=== PATIENT | male | born 1965 | race Caucasian/White ===

== ENCOUNTER 2017-01-08 16:16 | Inpatient (IN) | payer OTHER ==
[2017-01-08 19:39] VITALS: BMI 29.2
--- NOTE | 2017-01-08 20:17 | HP ---
CIWA Score - CIWA Score Nausea/Vomitin-No Nausea/No Vomiting Muscle Tremors: 3 Anxiety: 2 Agitation: 3 Paroxysmal Sweats: 3 Orientation: 1-Uncertain about Date Tacttile Disturbances: 1-Very Mild Itch/Numbness Auditory Disturbances: 1-Very Mild Visual Disturbances: 1-Very Mild Sensitivity Headache: 2-Mild CIWA-Ar Total Score: 17 Admission ROS BHS - HPI Chief Complaint: WITHDRAWAL SYMPTOMS Allergies/Adverse Reactions: Allergies Allergy/AdvReac Type Severity Reaction Status Date / Time No Known Allergies Allergy Verified 09/05/11 22:11 History of Present Illness: 51 Y.O. MAN WITH AN EXTENSIVE HISTORY OF ALCOHOL DEPENDENCE IS HERE SEEKING DETOX. HE WAS PREVIOUSLY AT [facility] IN 09/2011 AND REPORTS HAVING A 2 YEAR HISTORY OF SOBRIETY. PT. REPORTS HE WAS ADMITTED AT [facility] THE WEEK PRIOR FOR ALCOHOL INTOXICATION. Exam Limitations: No Limitations - Ebola screening Have you traveled outside of the country in the last 21 days: No (N) Have you had contact with anyone from an Ebola affected area: No Have you been sick,other than usual withdrawal symptoms: No Do you have a fever: No - Review of Systems Constitutional: Loss of Appetite, Night Sweats, Unintentional Wgt. Loss EENT: reports: Blurred Vision Respiratory: reports: No Symptoms reported Cardiac: reports: No Symptoms Reported GI: reports: Poor Appetite : reports: Other (HESITANCY) Musculoskeletal: reports: Back Pain Integumentary: reports: Rash (ON CHEST) Neuro: reports: Headache (H/O TENSION JUNE), Seizure (ETOH RELATED-LAST WAS 1 WEEK AGO), Tremors Endocrine: reports: No Symptoms Reported Hematology: reports: No Symptoms Reported Psychiatric: reports: Depressed, other (H/O PANIC ATTACKS) Other Systems: Reviewed and Negative Patient History - Patient Medical History Hx Anemia: No Hx Asthma: No Hx Chronic Obstructive Pulmonary Disease (COPD): No Hx Cancer: No Hx Cardiac Disorders: No Hx Congestive Heart Failure: No Hx Hypertension: No Hx Hypercholesterolemia: No Hx Pacemaker: No HX Cerebrovascular Accident: No Hx Seizures: Yes (last seizure 1 week ago) Hx Dementia: No Hx Diabetes: No Hx Gastrointestinal Disorders: No Hx Liver Disease: No Hx Genitourinary Disorders: No Hx Sexually Transmitted Disorders: No Hx Renal Disease (ESRD): No Hx Thyroid Disease: No Hx Human Immunodeficiency Virus (HIV): No (Negative ) Hx Hepatitis C: No Hx Depression: Yes Hx Suicide Attempt: No Hx Bipolar Disorder: No Hx Schizophrenia: No - Patient Surgical History Past Surgical History: Yes Hx Neurologic Surgery: No Hx Cataract Extraction: No Hx Cardiac Surgery: No Hx Lung Surgery: No Hx Breast Surgery: No Hx Breast Biopsy: No Hx Abdominal Surgery: Yes (Hernia repair 2012) Hx Appendectomy: No Hx Cholecystectomy: No Hx Genitourinary Surgery: No Hx Section: No Hx Orthopedic Surgery: Yes (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) Other Surgical History: Amputation of Left Index finger Anesthesia Reaction: No - PPD History Previous Implant?: Yes Documented Results: Negative w/o proof PPD to be Administered?: Yes - Reproductive History Patient is a Female of Child Bearing Age (11 -55 yrs old): No - Smoking Cessation Smoking history: Former smoker Have you smoked in the past 12 months: No Hx Chewing Tobacco Use: No Initiated information on smoking cessation: Yes 'Breaking Loose' booklet given: 01/08/17 - Substance & Tx. History Hx Alcohol Use: Yes Hx Substance Use: No Substance Use Type: Alcohol Hx Substance Use Treatment: Yes (REHAB AND DETOX ) - Substances Abused Alcohol Route: Oral Frequency: Daily Amount used: 6 PACK OF BEER AND 2 PINTS OF LIQUOR Age of first use: 16 Date of Last Use: 01/08/17 Family Disease History - Family Disease History Family Disease History: Other: Father (ALCOHOL DEPENDENCE-) Admission Physical Exam BHS - Vital Signs Vital Signs: Vital Signs - 24 hr 01/08/17 19:35 Temperature 97.0 F L Pulse Rate 77 Respiratory 18 Rate Blood Pressure 143/86 - Physical General Appearance: Yes: Disheveled, Tremorous, Anxious HEENTM: Yes: Normocephalic, Normal Voice Respiratory: Yes: Lungs Clear, Normal Breath Sounds, No Respiratory Distress, No Accessory Muscle Use Neck: Yes: Within Normal Limits Breast: Yes: Breast Exam Deferred Cardiology: Yes: Regular Rhythm, Regular Rate, S1, S2 Abdominal: Yes: Non Tender, Flat, Soft Genitourinary: Yes: Hesitency Back: Yes: Normal Inspection Musculoskeletal: Yes: Back pain Extremities: Yes: Tremors Neurological: Yes: Alert, Normal Mood/Affect, Normal Response Integumentary: Yes: Normal Color, Dry, Warm Lymphatic: Yes: Within Normal Limits - Diagnostic (1) Alcohol dependence with uncomplicated withdrawal Current Visit: Yes Status: Chronic Cleared for Admission [facility] - Detox or Rehab [facility] Level of Care: Medically Managed Detox Regimen/Protocol: Librium [facility] Breath Alcohol Content Breath Alcohol Content: 0 Urine Drug Screen - Results Drug Screen Negative: No Urine Drug Screen Results: BZO-Benzodiazepines
[2017-01-08] MEDS ORDERED: LOPERAMIDE HCL 2 MG CAPSULE PO PRN (20:29)
[2017-01-08] MEDS ORDERED: MENTHOL/PHENOL 1 EACH UD MM PRN (20:29)
[2017-01-08] MEDS ORDERED: guaiFENesin/D-METHORPHAN HB 10 ML UNIT-DOSE CUPS PO PRN (20:29)
[2017-01-08] MEDS ORDERED: MAG HYDROX/AL HYDROX/SIMETH 30 ML UNIT-DOSE CUP PO PRN (20:29)
[2017-01-08] MEDS ORDERED: MAGNESIUM HYDROX 2400MG/30ML ORAL SUSPENSION 30 ML CUP PO PRN (20:29)
[2017-01-08] MEDS ORDERED: chlordiazePOXIDE HCL 25 MG CAPSULE PO PRN (20:29)
[2017-01-08] MEDS ORDERED: P-EPHED 60MG/TRIPROLIDI 2.5MG TABLET PO PRN (20:29)
[2017-01-08] MEDS ORDERED: MAGNESIUM CITRATE 300 ML BOTTLE PO PRN (20:29)
[2017-01-08] MEDS ORDERED: chlordiazePOXIDE HCL 25 MG CAPSULE PO ONE (20:29)
[2017-01-08] MEDS: diphenhydrAMINE HCL 50 MG CAPSULE PO PRN (22:51)
[2017-01-08] MEDS: chlordiazePOXIDE HCL 25 MG CAPSULE PO SCH (22:51)
[2017-01-08] MEDS: THIAMINE HCL 100 MG TABLET (FP) PO SCH (22:57)
[2017-01-09] MEDS: chlordiazePOXIDE HCL 25 MG CAPSULE PO SCH ×4 (05:31→22:17)
[2017-01-09] MEDS: IBUPROFEN 400 MG TABLET (FP) PO PRN ×2 (06:05→12:32)
[2017-01-09 10:10] LABS: MCHC 33.5 g/dl (32.0-35.9); MEAN CELL VOLUME 98.5 fl (80-96); MEAN PLT VOLUME 7.8 fl (7.5-11.1); PLATELET COUNT 282 K/MM3 (134-434); RDW 14.1 % (11.9-15.9); WHITE BLOOD COUNT 5.2 K/mm3 (4.0-10.0)
[2017-01-09] MEDS: PARoxetine HCL 10 MG TABLET (FP) PO SCH (10:11)
[2017-01-09] MEDS: PRENATAL VITAMINS W/ FOLIC ACID TABLET (FP) PO SCH (10:11)
[2017-01-09] MEDS: ACETAMINOPHEN 325 MG TABLET (FP) PO PRN ×2 (10:11→13:14)
[2017-01-09 10:15] LABS: ALBUMIN 3.3 g/dl (3.4-5.0); ANION GAP 9 (8-16); BILIRUBIN,TOTAL 0.5 mg/dL (0.2-1.0); CALCIUM 8.8 mg/dL (8.5-10.1); CO2 27 mmol/L (21-32); COCKROFT - GAULT 164.46; CREATININE 0.6 mg/dL (0.7-1.3); GLUCOSE,RANDOM 99 mg/dL (74-106); SGOT/AST 23 U/L (15-37); SGPT/ALT 28 U/L (12-78); TOT PROT 6.8 g/dl (6.4-8.2)
[2017-01-09 10:16] LABS: ALK PHOS 20 U/L (45-117)
--- NOTE | 2017-01-09 10:42 | CONSULT ---
[facility] Psychiatric Consult - Data Date of interview: 01/09/17 Admission source: [facility] Identifying data: This is 51 years old homeless male with history of no psychiatric hospitalizations, intoxicated with Alcohol and Benzodiazepins Substance Abuse History: - Smoking Cessation. Smoking history: Former smoker. Have you smoked in the past 12 months: No. Hx Chewing Tobacco Use: No. Initiated information on smoking cessation: Yes. 'Breaking Loose' booklet given : 01/08/17. - Substance & Tx. History. Hx Alcohol Use: Yes. Hx Substance Use : No. Substance Use Type: Alcohol. Hx Substance Use Treatment: Yes (REHAB AND DETOX ). - Substances Abused. Alcohol. Route: Oral. Frequency: Daily. Amount used: 6 PACK OF BEER AND 2 PINTS OF LIQUOR. Age of first use: 16. Date of Last Use: 01/08/17 Medical History: Denies significant medical issues Psychiatric History: Reports history of depression and anxiety, reports no psychiatriocf hospitalization history, reports taking prior toa dmission: Paxil 30mg poqd Physical/Sexual Abuse/Trauma History: Denies Additional Comment: Paxil 30mg poqd Mental Status Exam - Mental Status Exam Alert and Oriented to: Person Cognitive Function: Fair Patient Appearance: Unkempt Mood: Sad Affect: Flat Patient Behavior: Sedated Speech Pattern: Delayed Voice Loudness: Mildly Soft/Quiet Thought Process: Circumstantial Thought Disorder: Being Controlled Hallucinations: Denies Suicidal Ideation: Denies Homicidal Ideation: Denies Insight/Judgement: Fair Sleep: Difficulty falling asleep Appetite: Fair Muscle strength/Tone: Mild Hypotonicity Gait/Station: Shuffling Additional Comments: Paxil 30mg poqd Psychiatric Findings - Problem List ([place] 1, 2,3) (1) Alcohol dependence with uncomplicated withdrawal Current Visit: Yes Status: Chronic (2) Benzodiazepine abuse Current Visit: Yes Status: Acute (3) Drug-induced mood disorder Current Visit: Yes Status: Acute - Initial Treatment Plan Initial Treatment Plan: Paxil 30mg poqd
--- NOTE | 2017-01-09 10:51 | PN ---
[facility] CIWA - CIWA Score Nausea/Vomitin Muscle Tremors: 3 Anxiety: 3 Agitation: 3 Paroxysmal Sweats: 3 Orientation: 0-Oriented Tacttile Disturbances: 2-Mild Itch/Numbness/Burn Auditory Disturbances: 0-None Visual Disturbances: 0-None Headache: 0-None Present CIWA-Ar Total Score: 17 S Progress Note (SOAP) Subjective: interrupted sleep, sweats, shakes, feet hurt Objective: 01/09/17 10:49 Vital Signs Temperature 98.3 F 01/09/17 10:32 Pulse Rate 82 01/09/17 10:32 Respiratory Rate 16 01/09/17 10:32 Blood Pressure 148/93 01/09/17 10:32 O2 Sat by Pulse Oximetry (%) Laboratory Tests 01/09/17 01/09/17 07:00 07:00 WBC 5.2 RBC 3.96 L Hgb 13.1 Hct 39.0 MCV 98.5 H MCHC 33.5 RDW 14.1 Plt Count 282 MPV 7.8 Sodium 143 Potassium 4.0 Chloride 107 Carbon Dioxide 27 Anion Gap 9 BUN 10 D Creatinine 0.6 L Creat Clearance w eGFR > 60 Random Glucose 99 Calcium 8.8 Total Bilirubin 0.5 D AST 23 D ALT 28 Alkaline Phosphatase 20 L Total Protein 6.8 Albumin 3.3 L pt aox3 in nad ambulating with painfull feet Assessment: 01/09/17 10:51 withdrawal sx's Plan: cont. detox increase fluids motrin prn gabapentin 100mg tid
--- NOTE | 2017-01-09 12:39 | EKG ---
Test Reason : Blood Pressure : / mmHG Vent. Rate : 072 BPM Atrial Rate : 072 BPM P-R Int : 208 ms QRS Dur : 108 ms QT Int : 398 ms P-R-T Axes : 053 025 034 degrees QTc Int : 435 ms NORMAL SINUS RHYTHM NORMAL ECG NO PREVIOUS ECGS AVAILABLE Confirmed by BLAS RÍOS, LOIDA ([id number]) on 01/09/2017 12:39:27 PM Referred By: Confirmed By:LOIDA ODONNELL MD
[2017-01-09] MEDS: GABAPENTIN 100 MG CAPSULE (FP) PO SCH ×2 (13:13→22:17)
[2017-01-09] MEDS: THIAMINE HCL 100 MG TABLET (FP) PO SCH (22:17)
[2017-01-10] MEDS: GABAPENTIN 100 MG CAPSULE (FP) PO SCH ×3 (06:08→22:44)
[2017-01-10] MEDS: chlordiazePOXIDE HCL 25 MG CAPSULE PO SCH ×3 (06:08→17:43)
[2017-01-10] MEDS: IBUPROFEN 400 MG TABLET (FP) PO PRN (06:10)
[2017-01-10] MEDS: ACETAMINOPHEN 325 MG TABLET (FP) PO PRN (08:55)
[2017-01-10] MEDS: hydrOXYzine PAMOATE 50 MG CAPSULE (FP) PO PRN (08:55)
[2017-01-10] MEDS: PARoxetine HCL 10 MG TABLET (FP) PO SCH (10:39)
[2017-01-10] MEDS: TOLNAFTATE 1% CREAM 15 GM TUBE TP SCH ×2 (10:41→22:43)
[2017-01-10] MEDS: PRENATAL VITAMINS W/ FOLIC ACID TABLET (FP) PO SCH (10:41)
[2017-01-10] MEDS: HYDROCORTISONE 1% TOPICAL CREAM 30 GM TUBE TP PRN ×2 (10:41→22:42)
--- NOTE | 2017-01-10 11:49 | PN ---
S CIWA - CIWA Score Nausea/Vomitin-No Nausea/No Vomiting Muscle Tremors: 4-Moderate,w/Arms Extend Anxiety: 3 Agitation: 4-Moderately Restless Paroxysmal Sweats: 3 Orientation: 0-Oriented Tacttile Disturbances: 0-None Auditory Disturbances: 0-None Visual Disturbances: 0-None Headache: 0-None Present CIWA-Ar Total Score: 14 BHS Progress Note (SOAP) Subjective: sweats shakes headache interrupted sleep facial rash feet itch burning on bottom of feet Objective: 01/10/17 11:46 Vital Signs Temperature 97.5 F L 01/10/17 09:46 Pulse Rate 5 L 01/10/17 09:46 Respiratory Rate 18 01/10/17 09:46 Blood Pressure 132/84 01/10/17 09:46 O2 Sat by Pulse Oximetry (%) Laboratory Tests 01/09/17 01/09/17 01/09/17 07:00 07:00 07:00 WBC 5.2 RBC 3.96 L Hgb 13.1 Hct 39.0 MCV 98.5 H MCHC 33.5 RDW 14.1 Plt Count 282 MPV 7.8 Sodium 143 Potassium 4.0 Chloride 107 Carbon Dioxide 27 Anion Gap 9 BUN 10 D Creatinine 0.6 L Creat Clearance w eGFR > 60 Random Glucose 99 Calcium 8.8 Total Bilirubin 0.5 D AST 23 D ALT 28 Alkaline Phosphatase 20 L Total Protein 6.8 Albumin 3.3 L RPR Titer Nonreactive rest of labs pending awake/alert ambulating no acute distress Assessment: 01/10/17 11:47 withdrawal sx Plan: continue detox increase fluids cream for face and feet ordered neurontin ordered motrin/tylenol prn
[2017-01-10 14:18] LABS: URINE APPEARANCE CLEAR; URINE BILIRUBIN NEGATIVE (NEGATIVE); URINE BLOOD NEGATIVE (NEGATIVE); URINE COLOR YELLOW; URINE GLUCOSE (UA) NEGATIVE (NEGATIVE); URINE KETONE NEGATIVE (NEGATIVE); URINE LEUK ESTERASE NEGATIVE (NEGATIVE); URINE NITRITE NEGATIVE (NEGATIVE); URINE PROTEIN NEGATIVE (NEGATIVE); URINE UROBILINOGEN NEGATIVE E.U./dl (0.2-1.0)
[2017-01-10] MEDS: THIAMINE HCL 100 MG TABLET (FP) PO SCH (22:43)
[2017-01-10] MEDS: chlordiazePOXIDE 5 MG CAPSULE PO SCH (22:44)
[2017-01-11] MEDS: GABAPENTIN 100 MG CAPSULE (FP) PO SCH ×3 (06:12→23:02)
[2017-01-11] MEDS: chlordiazePOXIDE 5 MG CAPSULE PO SCH ×3 (06:12→17:14)
[2017-01-11] MEDS: IBUPROFEN 400 MG TABLET (FP) PO PRN ×3 (06:13→21:34)
[2017-01-11] MEDS: TOLNAFTATE 1% CREAM 15 GM TUBE TP SCH ×2 (10:00→23:02)
[2017-01-11] MEDS: PARoxetine HCL 10 MG TABLET (FP) PO SCH (10:46)
[2017-01-11] MEDS: PRENATAL VITAMINS W/ FOLIC ACID TABLET (FP) PO SCH (10:46)
[2017-01-11] MEDS: hydrOXYzine PAMOATE 50 MG CAPSULE (FP) PO PRN (10:46)
[2017-01-11] MEDS: ACETAMINOPHEN 325 MG TABLET (FP) PO PRN (10:47)
--- NOTE | 2017-01-11 11:12 | PN ---
BHS Progress Note (SOAP) Subjective: Stomach Cramping, Diarrhea, Lower Back Ache, H/A, Tremors, Sweating. Objective: PT. A & O X 2 (DISORIENTED ABOUT LOCATION). PT. DENIES CHEST PAIN. 01/11/17 11:10 Vital Signs Temperature 97.6 F 01/11/17 10:00 Pulse Rate 80 01/11/17 10:00 Respiratory Rate 18 01/11/17 10:00 Blood Pressure 120/84 01/11/17 10:00 O2 Sat by Pulse Oximetry (%) Laboratory Tests 01/09/17 01/09/17 01/09/17 07:00 07:00 07:00 WBC 5.2 RBC 3.96 L Hgb 13.1 Hct 39.0 MCV 98.5 H MCHC 33.5 RDW 14.1 Plt Count 282 MPV 7.8 Sodium 143 Potassium 4.0 Chloride 107 Carbon Dioxide 27 Anion Gap 9 BUN 10 D Creatinine 0.6 L Creat Clearance w eGFR > 60 Random Glucose 99 Calcium 8.8 Total Bilirubin 0.5 D AST 23 D ALT 28 Alkaline Phosphatase 20 L Total Protein 6.8 Albumin 3.3 L Urine Color Urine Appearance Urine pH Ur Specific [place] Urine Protein Urine Glucose (UA) Urine Ketones Urine Blood Urine Nitrite Urine Bilirubin Urine Urobilinogen Ur Leukocyte Esterase RPR Titer Nonreactive 01/10/17 11:55 WBC RBC Hgb Hct MCV MCHC RDW Plt Count MPV Sodium Potassium Chloride Carbon Dioxide Anion Gap BUN Creatinine Creat Clearance w eGFR Random Glucose Calcium Total Bilirubin AST ALT Alkaline Phosphatase Total Protein Albumin Urine Color Yellow Urine Appearance Clear Urine pH 5.0 Ur Specific [place] 1.015 Urine Protein Negative Urine Glucose (UA) Negative Urine Ketones Negative Urine Blood Negative Urine Nitrite Negative Urine Bilirubin Negative Urine Urobilinogen Negative Ur Leukocyte Esterase Negative RPR Titer LABS NOTED. Assessment: 01/11/17 11:10 WITHDRAWAL SYMPTOMS. Plan: CONTINUE DETOX.
[2017-01-11] MEDS: BACITRACIN 0.9 GM PACKET TP SCH ×2 (12:23→23:02)
[2017-01-11] MEDS: HYDROCORTISONE 1% TOPICAL CREAM 30 GM TUBE TP PRN (17:17)
[2017-01-11] MEDS: chlordiazePOXIDE HCL 10 MG CAPSULE PO SCH (23:02)
[2017-01-11] MEDS: THIAMINE HCL 100 MG TABLET (FP) PO SCH (23:02)
[2017-01-11] MEDS: diphenhydrAMINE HCL 50 MG CAPSULE PO PRN (23:03)
[2017-01-12] MEDS: chlordiazePOXIDE HCL 10 MG CAPSULE PO SCH ×3 (06:00→17:37)
[2017-01-12] MEDS: GABAPENTIN 100 MG CAPSULE (FP) PO SCH ×3 (06:00→23:17)
[2017-01-12] MEDS: IBUPROFEN 400 MG TABLET (FP) PO PRN (09:52)
[2017-01-12] MEDS: PARoxetine HCL 10 MG TABLET (FP) PO SCH (11:02)
[2017-01-12] MEDS: TOLNAFTATE 1% CREAM 15 GM TUBE TP SCH ×2 (11:03→23:28)
[2017-01-12] MEDS: BACITRACIN 0.9 GM PACKET TP SCH ×2 (11:03→23:17)
[2017-01-12] MEDS: PRENATAL VITAMINS W/ FOLIC ACID TABLET (FP) PO SCH (11:03)
[2017-01-12] MEDS: ACETAMINOPHEN 325 MG TABLET (FP) PO PRN (11:04)
--- NOTE | 2017-01-12 19:00 | PN ---
BHS Progress Note (SOAP) Subjective: Tremors, Sweating, Lower Back Ache, H/A, Diarrhea. Objective: PT. A & O X 3, OBSERVED AMBULATING ON UNIT. PT. DENIES CHEST PAIN. SMALL WOUND NOTED ON THE SOLES OF BILATERAL FEET NEAR BASE OF BIG TOE. NO SIGNS OF INFECTION NOTED. 01/12/17 18:55 Vital Signs Temperature 99.1 F 01/12/17 18:29 Pulse Rate 78 01/12/17 18:29 Respiratory Rate 18 01/12/17 18:29 Blood Pressure 122/73 01/12/17 18:29 O2 Sat by Pulse Oximetry (%) Laboratory Tests 01/09/17 01/09/17 01/09/17 07:00 07:00 07:00 WBC 5.2 RBC 3.96 L Hgb 13.1 Hct 39.0 MCV 98.5 H MCHC 33.5 RDW 14.1 Plt Count 282 MPV 7.8 Sodium 143 Potassium 4.0 Chloride 107 Carbon Dioxide 27 Anion Gap 9 BUN 10 D Creatinine 0.6 L Creat Clearance w eGFR > 60 Random Glucose 99 Calcium 8.8 Total Bilirubin 0.5 D AST 23 D ALT 28 Alkaline Phosphatase 20 L Total Protein 6.8 Albumin 3.3 L Urine Color Urine Appearance Urine pH Ur Specific [place] Urine Protein Urine Glucose (UA) Urine Ketones Urine Blood Urine Nitrite Urine Bilirubin Urine Urobilinogen Ur Leukocyte Esterase RPR Titer Nonreactive 01/10/17 11:55 WBC RBC Hgb Hct MCV MCHC RDW Plt Count MPV Sodium Potassium Chloride Carbon Dioxide Anion Gap BUN Creatinine Creat Clearance w eGFR Random Glucose Calcium Total Bilirubin AST ALT Alkaline Phosphatase Total Protein Albumin Urine Color Yellow Urine Appearance Clear Urine pH 5.0 Ur Specific [place] 1.015 Urine Protein Negative Urine Glucose (UA) Negative Urine Ketones Negative Urine Blood Negative Urine Nitrite Negative Urine Bilirubin Negative Urine Urobilinogen Negative Ur Leukocyte Esterase Negative RPR Titer LABS NOTED. 01/12/17 19:00 01/12/17 19:01 Assessment: 01/12/17 18:55 WITHDRAWAL SYMPTOMS. 01/12/17 19:01 Plan: CONTINUE DETOX. ADVISED PT. TO CONTINUE TO APPLY BACITRACIN TO WOUNDS ON BILATERAL FEET AND TO COVER WITH BANDAIDS (RN ASKED TO ASSIST). PT. ALSO REMINDED TO KEEP SOCKS ON FEET AT ALL TIME WHEN AMBULATING ON UNIT. ADVISED PT. TO FOLLOW-UP WITH SOC ANALYST / [employer]AW CARRIAGE OPERATOR AFTER DISCHARGE FROM DETOX FOR FURTHER EVALUATION OF FOOT WOUNDS.
[2017-01-12] MEDS: HYDROCORTISONE 1% TOPICAL CREAM 30 GM TUBE TP PRN (23:17)
[2017-01-12] MEDS: THIAMINE HCL 100 MG TABLET (FP) PO SCH (23:17)
[2017-01-13] MEDS: GABAPENTIN 100 MG CAPSULE (FP) PO SCH (06:01)
[2017-01-13] MEDS: PARoxetine HCL 10 MG TABLET (FP) PO SCH (10:54)
[2017-01-13] MEDS: PRENATAL VITAMINS W/ FOLIC ACID TABLET (FP) PO SCH (10:54)
[2017-01-13] MEDS: BACITRACIN 0.9 GM PACKET TP SCH ×2 (10:55→11:24)
[2017-01-13] MEDS: TOLNAFTATE 1% CREAM 15 GM TUBE TP SCH (10:55)
--- NOTE | 2017-01-13 10:58 | DS ---
[facility] Detox Discharge Summary Admission Date: 01/08/17 Discharge Date: 01/13/17 - History Present History: Alcohol Dependence Pertinent Past History: Mood disorder - Physical Exam Results Vital Signs: Vital Signs Temperature 98.2 F 01/13/17 06:50 Pulse Rate 64 01/13/17 06:50 Respiratory Rate 18 01/13/17 06:50 Blood Pressure 131/78 01/13/17 06:50 O2 Sat by Pulse Oximetry (%) Pertinent Admission Physical Exam Findings: Withdrawal sx. Laboratory Last Values WBC 5.2 K/mm3 (4.0-10.0) 01/09/17 07:00 RBC 3.96 M/mm3 (4.00-5.60) L 01/09/17 07:00 Hgb 13.1 GM/dL (11.7-16.9) 01/09/17 07:00 Hct 39.0 % (35.4-49) 01/09/17 07:00 MCV 98.5 fl (80-96) H 01/09/17 07:00 MCHC 33.5 g/dl (32.0-35.9) 01/09/17 07:00 RDW 14.1 % (11.9-15.9) 01/09/17 07:00 Plt Count 282 K/MM3 (134-434) 01/09/17 07:00 MPV 7.8 fl (7.5-11.1) 01/09/17 07:00 Sodium 143 mmol/L (136-145) 01/09/17 07:00 Potassium 4.0 mmol/L (3.5-5.1) 01/09/17 07:00 Chloride 107 mmol/L (98-107) 01/09/17 07:00 Carbon Dioxide 27 mmol/L (21-32) 01/09/17 07:00 Anion Gap 9 (8-16) 01/09/17 07:00 BUN 10 mg/dL (7-18) D 01/09/17 07:00 Creatinine 0.6 mg/dL (0.7-1.3) L 01/09/17 07:00 Creat Clearance w eGFR > 60 (>60) 01/09/17 07:00 Random Glucose 99 mg/dL (74-106) 01/09/17 07:00 Calcium 8.8 mg/dL (8.5-10.1) 01/09/17 07:00 Total Bilirubin 0.5 mg/dL (0.2-1.0) D 01/09/17 07:00 AST 23 U/L (15-37) D 01/09/17 07:00 ALT 28 U/L (12-78) 01/09/17 07:00 Alkaline Phosphatase 20 U/L (45-117) L 01/09/17 07:00 Total Protein 6.8 g/dl (6.4-8.2) 01/09/17 07:00 Albumin 3.3 g/dl (3.4-5.0) L 01/09/17 07:00 Urine Color Yellow 01/10/17 11:55 Urine Appearance Clear 01/10/17 11:55 Urine pH 5.0 (5.0-8.0) 01/10/17 11:55 Ur Specific [place] 1.015 (1.005-1.025) 01/10/17 11:55 Urine Protein Negative (NEGATIVE) 01/10/17 11:55 Urine Glucose (UA) Negative (NEGATIVE) 01/10/17 11:55 Urine Ketones Negative (NEGATIVE) 01/10/17 11:55 Urine Blood Negative (NEGATIVE) 01/10/17 11:55 Urine Nitrite Negative (NEGATIVE) 01/10/17 11:55 Urine Bilirubin Negative (NEGATIVE) 01/10/17 11:55 Urine Urobilinogen Negative E.U./dl (0.2-1.0) 01/10/17 11:55 Ur Leukocyte Esterase Negative (NEGATIVE) 01/10/17 11:55 RPR Titer Nonreactive (NONREACTIVE) 01/09/17 07:00 labs noted - Treatment Hospital Course: Detox Protocol Followed, Detoxed Safely, Responded well, Discharged Condition Good, Rehab Referral Accepted Patient has Accepted a Rehab Referral to: [facility] Rehab - Medication Discharge Medications: Ambulatory Orders Paroxetine HCl [Paxil -] 30 mg PO DAILY 01/08/17 Phenytoin Na Extended [Dilantin -] 100 mg PO DAILY 01/08/17 Paroxetine HCl [Paxil -] 30 mg PO DAILY #30 tablet 01/09/17 - Diagnosis (1) Drug-induced mood disorder Current Visit: Yes Status: Acute (2) Alcohol dependence with uncomplicated withdrawal Current Visit: Yes Status: Chronic - AMA Did Patient Leave Against Medical Advice: No
[2017-01-13 11:11] VITALS: BP 121/83; PULSE 77; TEMP 97.5
== END 2017-01-13 11:15 | disposition other institution (70) | DRG 775 ==
LOC: YASAS 16:16 → Y6N 21:10
PROVIDERS: ADMIT Internal Medicine Addiction Medicine; ATTEND Internal Medicine Addiction Medicine
PROC: HZ2ZZZZ Detoxification Services for Substance Abuse Treatment (ICD-10-PCS; principal; 2017-01-08)
DX: F10.230 Alcohol dependence with withdrawal, uncomplicated (principal); F19.24 Other psychoactive substance dependence with psychoactive substance-induced mood disorder; Z86.69 Personal history of other diseases of the nervous system and sense organs; Z87.891 Personal history of nicotine dependence; Z89.022 Acquired absence of left finger(s); Z59.0 Homelessness
CPT/HCPCS: 36415; 80053; 81003; 85027; 86593; 93005; 93010

== ENCOUNTER 2017-01-13 11:34 | Inpatient (IN) | payer OTHER ==
[2017-01-13] MEDS ORDERED: P-EPHED 60MG/TRIPROLIDI 2.5MG TABLET PO PRN (16:31)
[2017-01-13] MEDS ORDERED: MAGNESIUM HYDROX 2400MG/30ML ORAL SUSPENSION 30 ML CUP PO PRN (16:31)
[2017-01-13] MEDS ORDERED: MENTHOL/PHENOL 1 EACH UD MM PRN (16:31)
[2017-01-13] MEDS ORDERED: MAG HYDROX/AL HYDROX/SIMETH 30 ML UNIT-DOSE CUP PO PRN (16:31)
[2017-01-13] MEDS ORDERED: guaiFENesin/D-METHORPHAN HB 10 ML UNIT-DOSE CUPS PO PRN (16:31)
[2017-01-13] MEDS ORDERED: MAGNESIUM CITRATE 300 ML BOTTLE PO PRN (16:31)
--- NOTE | 2017-01-13 16:33 | HP ---
[facility] Rehab Assess/Revision - Admission History Admitted to Rehab from: [facility] [place] Date of Admission to Rehab: 01/13/17 - Vital signs Vital Signs: Vital Signs Period Temp Pulse Resp BP Sys/Still Pulse Ox Last 24 Hr 98.3 F 85 18 113/78 - Findings Detox History & Physical reviewed: Yes Concur with findings: Yes
[2017-01-13] MEDS: THIAMINE HCL 100 MG TABLET (FP) PO SCH (21:53)
[2017-01-14] MEDS: PRENATAL VITAMINS W/ FOLIC ACID TABLET (FP) PO SCH (10:44)
[2017-01-14] MEDS: THIAMINE HCL 100 MG TABLET (FP) PO SCH (22:02)
[2017-01-14] MEDS: diphenhydrAMINE HCL 50 MG CAPSULE PO PRN (22:02)
[2017-01-14] MEDS: IBUPROFEN 400 MG TABLET (FP) PO PRN (22:04)
[2017-01-15] MEDS: IBUPROFEN 400 MG TABLET (FP) PO PRN (10:42)
[2017-01-15] MEDS: PRENATAL VITAMINS W/ FOLIC ACID TABLET (FP) PO SCH (10:42)
[2017-01-15] MEDS ORDERED: GABAPENTIN 250 MG/5 ML ORAL SOLUTION, 470 ML BOTTLE PO SCH (14:00)
[2017-01-15] MEDS: GABAPENTIN 100 MG CAPSULE (FP) PO SCH (14:26)
[2017-01-15] MEDS: ACETAMINOPHEN 325 MG TABLET (FP) PO PRN (14:27)
--- NOTE | 2017-01-15 17:53 | PN ---
S Progress Note Note: c/o fell in day room, right temporal and right lateral chest wall hit the ground , 8/10 pain, and right elbow right elbow, last lateral chest wall, left temporal skin intact, no redness, no swell, none tender fall protocol #[address] er evaluation ambulance was call, attempted to provide information to er without success
[2017-01-16] MEDS: THIAMINE HCL 100 MG TABLET (FP) PO SCH ×2 (00:01→21:50)
[2017-01-16] MEDS: GABAPENTIN 100 MG CAPSULE (FP) PO SCH ×4 (00:01→21:50)
[2017-01-16] MEDS: PHENYTOIN NA EXTENDED 100 MG CAPSULE (FP) PO SCH ×3 (10:34→21:50)
[2017-01-16] MEDS: PRENATAL VITAMINS W/ FOLIC ACID TABLET (FP) PO SCH (10:34)
--- NOTE | 2017-01-16 10:36 | HP ---
Psychiatrist Admission - Data Date of interview: 01/16/17 Admission source: 3n Identifying data: This is a first 5N inpatient rehaiblitation admission for this 51 year old single homeless English male, who is unemployed. Medical History: Alcohol related seizure disorder, lower back pain, hernia repair in 2013 amputation of left index finger, athletic feet. Psychiatric History: Patient reports he has been feeling depressed and anxious, reports no history of psychiatric hospitalizations, currently on Paxil 30 mg po daily, seen by and continued medication. He reports was seen by a psychiatrist while in [facility] where he was for medical reasons. Physical/Sexual Abuse/Trauma History: Denies history of sexual, physical an verbal abuse Additional Comment: Patient reports he lost his job due to his drinking Vital Signs: Vital Signs - 24 hr 01/15/17 01/15/17 01/16/17 16:45 16:53 00:41 Temperature 97.3 F L 97.3 F L 97.5 F L Pulse Rate 71 71 69 Respiratory 16 16 18 Rate Blood Pressure 127/76 127/76 125/83 01/16/17 01/16/17 01/16/17 00:44 03:30 04:48 Temperature 97.5 F L 97.9 F Pulse Rate 69 67 Respiratory 18 18 18 Rate Blood Pressure 125/83 127/81 01/16/17 01/16/17 01/16/17 04:53 06:53 06:56 Temperature 97.9 F 98.1 F 98.1 F Pulse Rate 67 80 80 Respiratory 18 20 20 Rate Blood Pressure 127/81 126/88 126/88 Allergies/Adverse Reactions: Allergies Allergy/AdvReac Type Severity Reaction Status Date / Time No Known Allergies Allergy Verified 01/08/17 21:53 Date of last physical exam: 01/08/17 Concur with the findings of this exam: Yes - Substance Abuse/Tx History Hx Alcohol Use: Yes Hx Substance Use: No Substance Use Type: Alcohol (2 pints of vodka, pack of beer daily) Hx Substance Use Treatment: Yes - Admission Criteria Previous failed treatment: Yes Poor recovery environment: Yes Comorbidities: Yes Lacks judgement: Yes Mental Status Exam - Mental Status Exam Alert and Oriented to: Place, Person Cognitive Function: Impaired Patient Appearance: Well Groomed Mood: Sad, Anxious Affect: Appropriate, Normal Range Patient Behavior: Appropriate, Cooperative (tearful ) Speech Pattern: Appropriate Voice Loudness: Normal Thought Process: Intact, Goal Oriented Thought Disorder: Not Present Hallucinations: Denies, Auditory (sometimes hears people calling hs name) Suicidal Ideation: Denies Homicidal Ideation: Denies Insight/Judgement: Fair Sleep: Well Appetite: Good Muscle strength/Tone: Normal Gait/Station: Normal Psychiatric Findings - Problem List ([place] 1, 2,3) (1) Alcohol dependence Current Visit: Yes Status: Acute (2) Alcohol-induced anxiety disorder Current Visit: Yes Status: Acute (3) Depression Current Visit: Yes Status: Acute - Initial Treatment Plan Initial Treatment Plan: discussed indications and properties of Campral, patient agreed to start,will continue Paxil, monitor progress as needed.
[2017-01-16] MEDS: ACAMPROSATE CALCIUM 333 MG TABLET.DR PO SCH ×2 (14:22→21:50)
[2017-01-16] MEDS: IBUPROFEN 400 MG TABLET (FP) PO PRN ×2 (14:23→21:51)
[2017-01-16] MEDS: diphenhydrAMINE HCL 50 MG CAPSULE PO PRN (21:52)
[2017-01-17] MEDS: GABAPENTIN 100 MG CAPSULE (FP) PO SCH ×3 (06:19→22:00)
[2017-01-17] MEDS: ACAMPROSATE CALCIUM 333 MG TABLET.DR PO SCH ×3 (06:20→21:59)
--- NOTE | 2017-01-17 09:16 | PN ---
[facility] Progress Note Note: dilantin 2.5,dilantin 300 mgs po once and 100 mgs po tid,repeat dilantin level in am
[2017-01-17] MEDS ORDERED: PHENYTOIN NA EXTENDED 100 MG CAPSULE (FP) PO ONE (09:20)
[2017-01-17] MEDS: PRENATAL VITAMINS W/ FOLIC ACID TABLET (FP) PO SCH (10:28)
[2017-01-17] MEDS: IBUPROFEN 400 MG TABLET (FP) PO PRN (10:29)
[2017-01-17] MEDS: PHENYTOIN NA EXTENDED 100 MG CAPSULE (FP) PO SCH ×2 (14:21→22:00)
[2017-01-17] MEDS: THIAMINE HCL 100 MG TABLET (FP) PO SCH (22:00)
[2017-01-17] MEDS: TOLNAFTATE 1% CREAM 15 GM TUBE TP SCH (22:00)
[2017-01-17] MEDS: diphenhydrAMINE HCL 50 MG CAPSULE PO PRN (22:00)
[2017-01-18] MEDS: PHENYTOIN NA EXTENDED 100 MG CAPSULE (FP) PO SCH ×3 (06:14→22:02)
[2017-01-18] MEDS: ACAMPROSATE CALCIUM 333 MG TABLET.DR PO SCH ×3 (06:14→22:02)
[2017-01-18] MEDS: GABAPENTIN 100 MG CAPSULE (FP) PO SCH ×3 (06:14→22:02)
[2017-01-18] MEDS: PRENATAL VITAMINS W/ FOLIC ACID TABLET (FP) PO SCH (10:32)
[2017-01-18] MEDS: IBUPROFEN 400 MG TABLET (FP) PO PRN ×2 (10:33→22:03)
[2017-01-18] MEDS: TOLNAFTATE 1% CREAM 15 GM TUBE TP SCH ×2 (10:34→22:05)
[2017-01-18] MEDS: THIAMINE HCL 100 MG TABLET (FP) PO SCH (22:02)
[2017-01-18] MEDS: diphenhydrAMINE HCL 50 MG CAPSULE PO PRN (22:03)
[2017-01-18] MEDS: HYDROCORTISONE 1% TOPICAL CREAM 30 GM TUBE TP SCH (22:05)
[2017-01-19] MEDS: ACAMPROSATE CALCIUM 333 MG TABLET.DR PO SCH ×3 (06:40→22:13)
[2017-01-19] MEDS: GABAPENTIN 100 MG CAPSULE (FP) PO SCH ×3 (06:40→22:13)
[2017-01-19] MEDS: PHENYTOIN NA EXTENDED 100 MG CAPSULE (FP) PO SCH ×3 (06:40→22:13)
[2017-01-19] MEDS: IBUPROFEN 400 MG TABLET (FP) PO PRN ×3 (06:41→22:14)
[2017-01-19] MEDS: PRENATAL VITAMINS W/ FOLIC ACID TABLET (FP) PO SCH (10:32)
[2017-01-19] MEDS: TOLNAFTATE 1% CREAM 15 GM TUBE TP SCH ×2 (10:33→22:15)
[2017-01-19] MEDS: PARoxetine HCL 10 MG TABLET (FP) PO SCH (10:33)
[2017-01-19] MEDS: HYDROCORTISONE 1% TOPICAL CREAM 30 GM TUBE TP SCH ×2 (10:34→22:32)
--- NOTE | 2017-01-19 11:33 | PN ---
[facility] Progress Note Note: Dilantin level is now 3.9, we'll give another dose of 300mg & repeat level on 01/21
[2017-01-19] MEDS ORDERED: PHENYTOIN NA EXTENDED 100 MG CAPSULE (FP) PO ONE (12:00)
[2017-01-19] MEDS: LOPERAMIDE HCL 2 MG CAPSULE PO PRN (13:09)
[2017-01-19] MEDS: THIAMINE HCL 100 MG TABLET (FP) PO SCH (22:13)
[2017-01-19] MEDS: diphenhydrAMINE HCL 50 MG CAPSULE PO PRN (22:14)
[2017-01-20] MEDS: PHENYTOIN NA EXTENDED 100 MG CAPSULE (FP) PO SCH ×3 (06:10→22:07)
[2017-01-20] MEDS: GABAPENTIN 100 MG CAPSULE (FP) PO SCH ×3 (06:10→22:06)
[2017-01-20] MEDS: ACAMPROSATE CALCIUM 333 MG TABLET.DR PO SCH ×3 (06:10→22:06)
[2017-01-20] MEDS: IBUPROFEN 400 MG TABLET (FP) PO PRN (06:11)
[2017-01-20] MEDS: PRENATAL VITAMINS W/ FOLIC ACID TABLET (FP) PO SCH (09:39)
[2017-01-20] MEDS: HYDROCORTISONE 1% TOPICAL CREAM 30 GM TUBE TP SCH ×2 (09:39→22:07)
[2017-01-20] MEDS: PARoxetine HCL 10 MG TABLET (FP) PO SCH (09:39)
[2017-01-20] MEDS: ACETAMINOPHEN 325 MG TABLET (FP) PO PRN (09:40)
[2017-01-20] MEDS: TOLNAFTATE 1% CREAM 15 GM TUBE TP SCH ×2 (09:40→22:08)
[2017-01-20] MEDS: diphenhydrAMINE HCL 50 MG CAPSULE PO PRN (22:07)
[2017-01-20] MEDS: THIAMINE HCL 100 MG TABLET (FP) PO SCH (22:07)
[2017-01-21] MEDS: PHENYTOIN NA EXTENDED 100 MG CAPSULE (FP) PO SCH ×3 (06:26→22:08)
[2017-01-21] MEDS: ACAMPROSATE CALCIUM 333 MG TABLET.DR PO SCH ×3 (06:26→22:08)
[2017-01-21] MEDS: GABAPENTIN 100 MG CAPSULE (FP) PO SCH ×3 (06:26→22:08)
[2017-01-21] MEDS: HYDROCORTISONE 1% TOPICAL CREAM 30 GM TUBE TP SCH ×2 (10:43→23:06)
[2017-01-21] MEDS: TOLNAFTATE 1% CREAM 15 GM TUBE TP SCH ×2 (10:43→22:10)
[2017-01-21] MEDS: PRENATAL VITAMINS W/ FOLIC ACID TABLET (FP) PO SCH (10:43)
[2017-01-21] MEDS: PARoxetine HCL 10 MG TABLET (FP) PO SCH (10:43)
[2017-01-21] MEDS: IBUPROFEN 400 MG TABLET (FP) PO PRN ×2 (10:44→22:09)
[2017-01-21] MEDS: ACETAMINOPHEN 325 MG TABLET (FP) PO PRN (14:31)
[2017-01-21] MEDS: THIAMINE HCL 100 MG TABLET (FP) PO SCH (22:08)
[2017-01-21] MEDS: diphenhydrAMINE HCL 50 MG CAPSULE PO PRN (22:08)
[2017-01-22] MEDS: PHENYTOIN NA EXTENDED 100 MG CAPSULE (FP) PO SCH ×3 (06:27→21:53)
[2017-01-22] MEDS: ACAMPROSATE CALCIUM 333 MG TABLET.DR PO SCH ×3 (06:27→21:54)
[2017-01-22] MEDS: GABAPENTIN 100 MG CAPSULE (FP) PO SCH ×2 (06:27→21:54)
[2017-01-22] MEDS: IBUPROFEN 400 MG TABLET (FP) PO PRN ×2 (08:30→21:54)
[2017-01-22] MEDS: TOLNAFTATE 1% CREAM 15 GM TUBE TP SCH ×2 (10:36→21:54)
[2017-01-22] MEDS: PARoxetine HCL 10 MG TABLET (FP) PO SCH (10:36)
[2017-01-22] MEDS: HYDROCORTISONE 1% TOPICAL CREAM 30 GM TUBE TP SCH ×2 (10:36→21:54)
[2017-01-22] MEDS: PRENATAL VITAMINS W/ FOLIC ACID TABLET (FP) PO SCH (10:36)
--- NOTE | 2017-01-22 10:47 | PN ---
[facility] Progress Note Note: Pt. c/o back pain & dizziness Vital Signs - 8 hr 01/22/17 01/22/17 03:30 06:18 Temperature 98.1 F Pulse Rate 76 Respiratory 18 18 Rate Blood Pressure 118/88 P : Increase Motrin to 800mg & decrease Gabapentin to 100mg bid
[2017-01-22] MEDS: THIAMINE HCL 100 MG TABLET (FP) PO SCH (21:53)
[2017-01-23] MEDS: PHENYTOIN NA EXTENDED 100 MG CAPSULE (FP) PO SCH ×3 (06:04→21:59)
[2017-01-23] MEDS: ACAMPROSATE CALCIUM 333 MG TABLET.DR PO SCH ×3 (06:04→21:59)
[2017-01-23] MEDS: PRENATAL VITAMINS W/ FOLIC ACID TABLET (FP) PO SCH (10:52)
[2017-01-23] MEDS: GABAPENTIN 100 MG CAPSULE (FP) PO SCH ×2 (10:52→21:59)
[2017-01-23] MEDS: PARoxetine HCL 10 MG TABLET (FP) PO SCH (10:52)
[2017-01-23] MEDS: TOLNAFTATE 1% CREAM 15 GM TUBE TP SCH ×2 (10:53→22:02)
[2017-01-23] MEDS: HYDROCORTISONE 1% TOPICAL CREAM 30 GM TUBE TP SCH ×2 (10:53→22:02)
[2017-01-23] MEDS: IBUPROFEN 400 MG TABLET (FP) PO PRN ×2 (13:12→22:01)
[2017-01-23] MEDS ORDERED: PHENYTOIN NA EXTENDED 100 MG CAPSULE (FP) PO ONE (15:08)
--- NOTE | 2017-01-23 15:13 | PN ---
[facility] Progress Note Note: DILANTIN LEVEL IS 4.2,DILANTIN 300 MGS PO NOW THEN DILANTIN 200 MGS PO BID,D/C DILANTIN 100 MGS PO TID, REPEAT DILANTIN LEVEL IN AM
[2017-01-23] MEDS: THIAMINE HCL 100 MG TABLET (FP) PO SCH (21:59)
[2017-01-23] MEDS: diphenhydrAMINE HCL 50 MG CAPSULE PO PRN (22:00)
[2017-01-24] MEDS: ACAMPROSATE CALCIUM 333 MG TABLET.DR PO SCH ×3 (06:28→22:02)
[2017-01-24] MEDS: PRENATAL VITAMINS W/ FOLIC ACID TABLET (FP) PO SCH (10:09)
[2017-01-24] MEDS: PARoxetine HCL 10 MG TABLET (FP) PO SCH (10:09)
[2017-01-24] MEDS: HYDROCORTISONE 1% TOPICAL CREAM 30 GM TUBE TP SCH ×2 (10:09→22:03)
[2017-01-24] MEDS: GABAPENTIN 100 MG CAPSULE (FP) PO SCH ×2 (10:09→22:02)
[2017-01-24] MEDS: PHENYTOIN NA EXTENDED 100 MG CAPSULE (FP) PO SCH ×2 (10:09→22:02)
[2017-01-24] MEDS: TOLNAFTATE 1% CREAM 15 GM TUBE TP SCH ×2 (10:10→22:03)
[2017-01-24] MEDS: IBUPROFEN 400 MG TABLET (FP) PO PRN (11:21)
--- NOTE | 2017-01-24 11:52 | PN ---
[facility] Progress Note Note: dilantin level today is 6.7,on dilatin 200 mgs po bid,repeat dilantin on 08/04
[2017-01-24] MEDS: ACETAMINOPHEN 325 MG TABLET (FP) PO PRN (15:07)
[2017-01-24] MEDS: THIAMINE HCL 100 MG TABLET (FP) PO SCH (22:02)
[2017-01-24] MEDS: diphenhydrAMINE HCL 50 MG CAPSULE PO PRN (22:02)
[2017-01-25] MEDS: ACAMPROSATE CALCIUM 333 MG TABLET.DR PO SCH ×3 (06:14→21:43)
[2017-01-25] MEDS: IBUPROFEN 400 MG TABLET (FP) PO PRN ×2 (06:14→21:44)
[2017-01-25] MEDS: GABAPENTIN 100 MG CAPSULE (FP) PO SCH ×2 (10:43→21:43)
[2017-01-25] MEDS: PHENYTOIN NA EXTENDED 100 MG CAPSULE (FP) PO SCH ×2 (10:43→21:43)
[2017-01-25] MEDS: HYDROCORTISONE 1% TOPICAL CREAM 30 GM TUBE TP SCH ×2 (10:43→21:46)
[2017-01-25] MEDS: PARoxetine HCL 10 MG TABLET (FP) PO SCH (10:43)
[2017-01-25] MEDS: PRENATAL VITAMINS W/ FOLIC ACID TABLET (FP) PO SCH (10:43)
[2017-01-25] MEDS: TOLNAFTATE 1% CREAM 15 GM TUBE TP SCH ×2 (10:44→21:46)
[2017-01-25] MEDS: diphenhydrAMINE HCL 50 MG CAPSULE PO PRN (21:43)
[2017-01-25] MEDS: THIAMINE HCL 100 MG TABLET (FP) PO SCH (21:43)
[2017-01-26] MEDS: ACAMPROSATE CALCIUM 333 MG TABLET.DR PO SCH ×3 (06:21→21:52)
[2017-01-26] MEDS: GABAPENTIN 100 MG CAPSULE (FP) PO SCH ×2 (10:38→21:52)
[2017-01-26] MEDS: PARoxetine HCL 10 MG TABLET (FP) PO SCH (10:38)
[2017-01-26] MEDS: PRENATAL VITAMINS W/ FOLIC ACID TABLET (FP) PO SCH (10:38)
[2017-01-26] MEDS: PHENYTOIN NA EXTENDED 100 MG CAPSULE (FP) PO SCH ×2 (10:38→21:52)
[2017-01-26] MEDS: TOLNAFTATE 1% CREAM 15 GM TUBE TP SCH ×2 (10:39→21:53)
[2017-01-26] MEDS: HYDROCORTISONE 1% TOPICAL CREAM 30 GM TUBE TP SCH ×2 (10:39→21:52)
[2017-01-26] MEDS: THIAMINE HCL 100 MG TABLET (FP) PO SCH (21:51)
[2017-01-26] MEDS: IBUPROFEN 400 MG TABLET (FP) PO PRN (21:52)
[2017-01-27] MEDS: ACAMPROSATE CALCIUM 333 MG TABLET.DR PO SCH ×3 (06:46→21:41)
[2017-01-27] MEDS: IBUPROFEN 400 MG TABLET (FP) PO PRN ×2 (08:26→21:43)
[2017-01-27] MEDS: PRENATAL VITAMINS W/ FOLIC ACID TABLET (FP) PO SCH (10:39)
[2017-01-27] MEDS: GABAPENTIN 100 MG CAPSULE (FP) PO SCH ×2 (10:39→21:42)
[2017-01-27] MEDS: PARoxetine HCL 10 MG TABLET (FP) PO SCH (10:39)
[2017-01-27] MEDS: PHENYTOIN NA EXTENDED 100 MG CAPSULE (FP) PO SCH ×2 (10:41→21:42)
[2017-01-27] MEDS: HYDROCORTISONE 1% TOPICAL CREAM 30 GM TUBE TP SCH ×2 (10:43→21:43)
[2017-01-27] MEDS: TOLNAFTATE 1% CREAM 15 GM TUBE TP SCH ×2 (10:43→21:43)
[2017-01-27] MEDS: LOPERAMIDE HCL 2 MG CAPSULE PO PRN (12:38)
[2017-01-27] MEDS: THIAMINE HCL 100 MG TABLET (FP) PO SCH (21:42)
[2017-01-27] MEDS: diphenhydrAMINE HCL 50 MG CAPSULE PO PRN (21:43)
[2017-01-28] MEDS: ACAMPROSATE CALCIUM 333 MG TABLET.DR PO SCH ×3 (06:16→22:03)
[2017-01-28] MEDS: TOLNAFTATE 1% CREAM 15 GM TUBE TP SCH ×2 (10:44→22:04)
[2017-01-28] MEDS: GABAPENTIN 100 MG CAPSULE (FP) PO SCH ×2 (10:44→22:04)
[2017-01-28] MEDS: PHENYTOIN NA EXTENDED 100 MG CAPSULE (FP) PO SCH ×2 (10:44→22:03)
[2017-01-28] MEDS: HYDROCORTISONE 1% TOPICAL CREAM 30 GM TUBE TP SCH ×2 (10:44→22:04)
[2017-01-28] MEDS: PARoxetine HCL 10 MG TABLET (FP) PO SCH (10:44)
[2017-01-28] MEDS: PRENATAL VITAMINS W/ FOLIC ACID TABLET (FP) PO SCH (10:44)
[2017-01-28] MEDS: IBUPROFEN 400 MG TABLET (FP) PO PRN (10:45)
[2017-01-28] MEDS: ACETAMINOPHEN 325 MG TABLET (FP) PO PRN (14:01)
[2017-01-28] MEDS: THIAMINE HCL 100 MG TABLET (FP) PO SCH (22:03)
[2017-01-28] MEDS: diphenhydrAMINE HCL 50 MG CAPSULE PO PRN (22:04)
[2017-01-29] MEDS: IBUPROFEN 400 MG TABLET (FP) PO PRN (06:06)
[2017-01-29] MEDS: ACAMPROSATE CALCIUM 333 MG TABLET.DR PO SCH ×3 (06:06→21:49)
[2017-01-29] MEDS: GABAPENTIN 100 MG CAPSULE (FP) PO SCH ×2 (10:43→21:49)
[2017-01-29] MEDS: PRENATAL VITAMINS W/ FOLIC ACID TABLET (FP) PO SCH (10:43)
[2017-01-29] MEDS: PHENYTOIN NA EXTENDED 100 MG CAPSULE (FP) PO SCH ×2 (10:43→21:49)
[2017-01-29] MEDS: HYDROCORTISONE 1% TOPICAL CREAM 30 GM TUBE TP SCH ×2 (10:43→21:49)
[2017-01-29] MEDS: PARoxetine HCL 10 MG TABLET (FP) PO SCH (10:43)
[2017-01-29] MEDS: TOLNAFTATE 1% CREAM 15 GM TUBE TP SCH ×2 (10:43→21:50)
[2017-01-29] MEDS: THIAMINE HCL 100 MG TABLET (FP) PO SCH (21:49)
[2017-01-29] MEDS: diphenhydrAMINE HCL 50 MG CAPSULE PO PRN (21:49)
[2017-01-30] MEDS: ACAMPROSATE CALCIUM 333 MG TABLET.DR PO SCH ×3 (06:28→22:18)
[2017-01-30] MEDS: PARoxetine HCL 10 MG TABLET (FP) PO SCH (09:50)
[2017-01-30] MEDS: GABAPENTIN 100 MG CAPSULE (FP) PO SCH ×2 (09:50→22:18)
[2017-01-30] MEDS: PHENYTOIN NA EXTENDED 100 MG CAPSULE (FP) PO SCH ×2 (09:50→22:18)
[2017-01-30] MEDS: IBUPROFEN 400 MG TABLET (FP) PO PRN ×2 (09:50→22:19)
[2017-01-30] MEDS: PRENATAL VITAMINS W/ FOLIC ACID TABLET (FP) PO SCH (09:50)
[2017-01-30] MEDS: TOLNAFTATE 1% CREAM 15 GM TUBE TP SCH ×2 (09:52→22:19)
[2017-01-30] MEDS: HYDROCORTISONE 1% TOPICAL CREAM 30 GM TUBE TP SCH ×2 (09:52→22:18)
[2017-01-30] MEDS: ACETAMINOPHEN 325 MG TABLET (FP) PO PRN (14:21)
[2017-01-30] MEDS: THIAMINE HCL 100 MG TABLET (FP) PO SCH (22:18)
[2017-01-30] MEDS: diphenhydrAMINE HCL 50 MG CAPSULE PO PRN (22:19)
[2017-01-31] MEDS: ACAMPROSATE CALCIUM 333 MG TABLET.DR PO SCH ×3 (06:56→22:12)
[2017-01-31] MEDS: PARoxetine HCL 10 MG TABLET (FP) PO SCH (10:24)
[2017-01-31] MEDS: PHENYTOIN NA EXTENDED 100 MG CAPSULE (FP) PO SCH ×2 (10:24→22:12)
[2017-01-31] MEDS: GABAPENTIN 100 MG CAPSULE (FP) PO SCH ×2 (10:25→22:12)
[2017-01-31] MEDS: PRENATAL VITAMINS W/ FOLIC ACID TABLET (FP) PO SCH (10:25)
[2017-01-31] MEDS: IBUPROFEN 400 MG TABLET (FP) PO PRN ×2 (10:25→18:11)
[2017-01-31] MEDS: HYDROCORTISONE 1% TOPICAL CREAM 30 GM TUBE TP SCH ×2 (10:57→22:12)
[2017-01-31] MEDS: TOLNAFTATE 1% CREAM 15 GM TUBE TP SCH ×2 (10:57→22:12)
--- NOTE | 2017-01-31 12:56 | PN ---
[facility] Progress Note Note: LOW BACK PAIN,LIDODRM PATCH 5% TO BACK DAILY
[2017-01-31] MEDS: LIDOCAINE 5% TOPICAL PATCH TP SCH (13:16)
[2017-01-31] MEDS: THIAMINE HCL 100 MG TABLET (FP) PO SCH (22:12)
[2017-01-31] MEDS: LIDOCAINE PATCH REMOVAL MC SCH (22:12)
[2017-01-31] MEDS: ACETAMINOPHEN 325 MG TABLET (FP) PO PRN (22:13)
[2017-02-01] MEDS: ACAMPROSATE CALCIUM 333 MG TABLET.DR PO SCH ×3 (06:09→22:06)
[2017-02-01] MEDS: IBUPROFEN 400 MG TABLET (FP) PO PRN ×3 (06:10→22:06)
[2017-02-01] MEDS: PRENATAL VITAMINS W/ FOLIC ACID TABLET (FP) PO SCH (10:38)
[2017-02-01] MEDS: PHENYTOIN NA EXTENDED 100 MG CAPSULE (FP) PO SCH ×2 (10:38→22:06)
[2017-02-01] MEDS: LIDOCAINE 5% TOPICAL PATCH TP SCH (10:38)
[2017-02-01] MEDS: GABAPENTIN 100 MG CAPSULE (FP) PO SCH ×2 (10:38→22:06)
[2017-02-01] MEDS: HYDROCORTISONE 1% TOPICAL CREAM 30 GM TUBE TP SCH ×2 (10:39→22:07)
[2017-02-01] MEDS: TOLNAFTATE 1% CREAM 15 GM TUBE TP SCH ×2 (10:39→22:08)
[2017-02-01] MEDS: PARoxetine HCL 10 MG TABLET (FP) PO SCH (10:49)
[2017-02-01] MEDS ORDERED: PHENYTOIN NA EXTENDED 100 MG CAPSULE (FP) PO ONE (14:05)
[2017-02-01] MEDS: THIAMINE HCL 100 MG TABLET (FP) PO SCH (22:06)
[2017-02-01] MEDS: LIDOCAINE PATCH REMOVAL MC SCH (22:07)
[2017-02-02] MEDS: ACAMPROSATE CALCIUM 333 MG TABLET.DR PO SCH ×3 (06:08→22:09)
[2017-02-02] MEDS: IBUPROFEN 400 MG TABLET (FP) PO PRN ×2 (06:08→16:48)
[2017-02-02] MEDS: GABAPENTIN 100 MG CAPSULE (FP) PO SCH ×2 (10:22→22:09)
[2017-02-02] MEDS: PARoxetine HCL 10 MG TABLET (FP) PO SCH (10:22)
[2017-02-02] MEDS: TOLNAFTATE 1% CREAM 15 GM TUBE TP SCH ×2 (10:23→22:11)
[2017-02-02] MEDS: LIDOCAINE 5% TOPICAL PATCH TP SCH (10:23)
[2017-02-02] MEDS: PHENYTOIN NA EXTENDED 100 MG CAPSULE (FP) PO SCH ×2 (10:23→22:09)
[2017-02-02] MEDS: PRENATAL VITAMINS W/ FOLIC ACID TABLET (FP) PO SCH (10:23)
[2017-02-02] MEDS: HYDROCORTISONE 1% TOPICAL CREAM 30 GM TUBE TP SCH ×2 (10:23→22:10)
[2017-02-02] MEDS: THIAMINE HCL 100 MG TABLET (FP) PO SCH (22:09)
[2017-02-02] MEDS: diphenhydrAMINE HCL 50 MG CAPSULE PO PRN (22:09)
[2017-02-02] MEDS: LIDOCAINE PATCH REMOVAL MC SCH (22:10)
[2017-02-03] MEDS: IBUPROFEN 400 MG TABLET (FP) PO PRN ×2 (06:21→12:42)
[2017-02-03] MEDS: ACAMPROSATE CALCIUM 333 MG TABLET.DR PO SCH ×3 (06:21→22:05)
[2017-02-03] MEDS: GABAPENTIN 100 MG CAPSULE (FP) PO SCH ×2 (10:45→22:05)
[2017-02-03] MEDS: PRENATAL VITAMINS W/ FOLIC ACID TABLET (FP) PO SCH (10:45)
[2017-02-03] MEDS: LIDOCAINE 5% TOPICAL PATCH TP SCH (10:46)
[2017-02-03] MEDS: PHENYTOIN NA EXTENDED 100 MG CAPSULE (FP) PO SCH ×2 (10:46→22:05)
[2017-02-03] MEDS: PARoxetine HCL 10 MG TABLET (FP) PO SCH (10:46)
[2017-02-03] MEDS: TOLNAFTATE 1% CREAM 15 GM TUBE TP SCH ×2 (10:47→22:06)
[2017-02-03] MEDS: HYDROCORTISONE 1% TOPICAL CREAM 30 GM TUBE TP SCH ×2 (10:47→22:06)
[2017-02-03] MEDS: LOPERAMIDE HCL 2 MG CAPSULE PO PRN (17:06)
[2017-02-03] MEDS: THIAMINE HCL 100 MG TABLET (FP) PO SCH (22:05)
[2017-02-03] MEDS: LIDOCAINE PATCH REMOVAL MC SCH (22:06)
[2017-02-04] MEDS: ACAMPROSATE CALCIUM 333 MG TABLET.DR PO SCH ×3 (06:02→22:03)
[2017-02-04] MEDS: IBUPROFEN 400 MG TABLET (FP) PO PRN ×2 (06:02→22:05)
[2017-02-04] MEDS: LIDOCAINE 5% TOPICAL PATCH TP SCH (10:57)
[2017-02-04] MEDS: GABAPENTIN 100 MG CAPSULE (FP) PO SCH ×2 (10:58→22:03)
[2017-02-04] MEDS: ACETAMINOPHEN 325 MG TABLET (FP) PO PRN (10:58)
[2017-02-04] MEDS: PHENYTOIN NA EXTENDED 100 MG CAPSULE (FP) PO SCH ×2 (10:58→22:03)
[2017-02-04] MEDS: PRENATAL VITAMINS W/ FOLIC ACID TABLET (FP) PO SCH (10:59)
[2017-02-04] MEDS: HYDROCORTISONE 1% TOPICAL CREAM 30 GM TUBE TP SCH ×2 (11:00→22:07)
[2017-02-04] MEDS: TOLNAFTATE 1% CREAM 15 GM TUBE TP SCH ×2 (11:01→22:07)
[2017-02-04] MEDS: PARoxetine HCL 10 MG TABLET (FP) PO SCH (12:46)
[2017-02-04] MEDS: diphenhydrAMINE HCL 50 MG CAPSULE PO PRN (22:04)
[2017-02-04] MEDS: THIAMINE HCL 100 MG TABLET (FP) PO SCH (22:04)
[2017-02-04] MEDS: LIDOCAINE PATCH REMOVAL MC SCH (22:06)
[2017-02-05] MEDS: ACAMPROSATE CALCIUM 333 MG TABLET.DR PO SCH ×3 (06:56→22:17)
[2017-02-05] MEDS: LIDOCAINE 5% TOPICAL PATCH TP SCH (10:52)
[2017-02-05] MEDS: HYDROCORTISONE 1% TOPICAL CREAM 30 GM TUBE TP SCH ×2 (10:52→22:17)
[2017-02-05] MEDS: PARoxetine HCL 10 MG TABLET (FP) PO SCH (10:52)
[2017-02-05] MEDS: GABAPENTIN 100 MG CAPSULE (FP) PO SCH ×2 (10:52→22:17)
[2017-02-05] MEDS: PHENYTOIN NA EXTENDED 100 MG CAPSULE (FP) PO SCH ×2 (10:52→22:17)
[2017-02-05] MEDS: PRENATAL VITAMINS W/ FOLIC ACID TABLET (FP) PO SCH (10:53)
[2017-02-05] MEDS: TOLNAFTATE 1% CREAM 15 GM TUBE TP SCH ×2 (10:53→22:19)
[2017-02-05] MEDS: diphenhydrAMINE HCL 50 MG CAPSULE PO PRN (22:18)
[2017-02-05] MEDS: LIDOCAINE PATCH REMOVAL MC SCH (22:18)
[2017-02-05] MEDS: THIAMINE HCL 100 MG TABLET (FP) PO SCH (22:19)
[2017-02-06] MEDS: ACAMPROSATE CALCIUM 333 MG TABLET.DR PO SCH ×3 (06:43→21:44)
[2017-02-06] MEDS: PRENATAL VITAMINS W/ FOLIC ACID TABLET (FP) PO SCH (10:46)
[2017-02-06] MEDS: PARoxetine HCL 10 MG TABLET (FP) PO SCH (10:46)
[2017-02-06] MEDS: PHENYTOIN NA EXTENDED 100 MG CAPSULE (FP) PO SCH ×2 (10:46→21:44)
[2017-02-06] MEDS: GABAPENTIN 100 MG CAPSULE (FP) PO SCH ×2 (10:46→21:44)
[2017-02-06] MEDS: LIDOCAINE 5% TOPICAL PATCH TP SCH (10:47)
[2017-02-06] MEDS: HYDROCORTISONE 1% TOPICAL CREAM 30 GM TUBE TP SCH ×2 (10:47→21:46)
[2017-02-06] MEDS: TOLNAFTATE 1% CREAM 15 GM TUBE TP SCH ×2 (10:47→21:45)
[2017-02-06] MEDS: THIAMINE HCL 100 MG TABLET (FP) PO SCH (21:44)
[2017-02-06] MEDS: diphenhydrAMINE HCL 50 MG CAPSULE PO PRN (21:46)
[2017-02-06] MEDS: IBUPROFEN 400 MG TABLET (FP) PO PRN (21:46)
[2017-02-06] MEDS: LIDOCAINE PATCH REMOVAL MC SCH (21:47)
[2017-02-07] MEDS: ACAMPROSATE CALCIUM 333 MG TABLET.DR PO SCH ×3 (06:08→22:21)
[2017-02-07] MEDS: IBUPROFEN 400 MG TABLET (FP) PO PRN (08:27)
[2017-02-07] MEDS: HYDROCORTISONE 1% TOPICAL CREAM 30 GM TUBE TP SCH ×2 (10:53→22:23)
[2017-02-07] MEDS: GABAPENTIN 100 MG CAPSULE (FP) PO SCH (10:53)
[2017-02-07] MEDS: PARoxetine HCL 10 MG TABLET (FP) PO SCH (10:53)
[2017-02-07] MEDS: PHENYTOIN NA EXTENDED 100 MG CAPSULE (FP) PO SCH ×2 (10:53→22:21)
[2017-02-07] MEDS: LIDOCAINE 5% TOPICAL PATCH TP SCH (10:54)
[2017-02-07] MEDS: PRENATAL VITAMINS W/ FOLIC ACID TABLET (FP) PO SCH (10:54)
[2017-02-07] MEDS: TOLNAFTATE 1% CREAM 15 GM TUBE TP SCH ×2 (10:55→22:23)
--- NOTE | 2017-02-07 14:41 | PN ---
Psychiatric Progress Note Vital Signs: Vital Signs Period Temp Pulse Resp BP Sys/Still Pulse Ox Last 24 Hr 98.3 F 84 18-18 117/85 Date of Session: 02/07/17 Chief Complaint:: "dizzy" HPI: Patient is addressing alcohol dependence comorbid alcohol induced anxiety disorder and depression. ROS: Seizure disorder medically managed. Current Medications: Active Medications Generic Name Dose Route Start Last Admin Trade Name Freq PRN Reason Stop Dose Admin Acamprosate 666 mg 01/16/17 14:00 02/07/17 14:23 Campral - PO 666 mg TID ELIAN Administration Acetaminophen 650 mg 01/13/17 16:31 02/04/17 10:58 Tylenol - PO 650 mg Q4H PRN Administration FEVER OR PAIN Al Hydroxide/Mg Hydroxide 30 ml 01/13/17 16:31 02/04/17 14:07 Mylanta Oral Suspension - PO 30 ml Q6H PRN Administration DYSPEPSIA Diphenhydramine HCl 50 mg 01/13/17 16:31 02/06/17 21:46 Benadryl - PO 50 mg HSMR1 PRN Administration FOR ITCHING Eucalyptus/Menthol/Phenol/Sorbitol 1 each 01/13/17 16:31 Cepastat Lozenge - MM Q4H PRN SORE THROAT Guaifenesin 10 ml 01/13/17 16:31 Robitussin Dm - PO Q6H PRN COUGH Hydrocortisone 1 applic 01/18/17 22:00 02/07/17 10:53 Hytone 1% Cream - TP Not Given BID ELIAN Ibuprofen 800 mg 01/22/17 10:44 02/07/17 08:27 Motrin - PO 800 mg Q6H PRN Administration PAIN Lidocaine 1 patch 01/31/17 13:00 02/07/17 10:54 Lidoderm Patch - TP 1 patch DAILY ELIAN Administration Loperamide HCl 4 mg 01/13/17 16:31 02/03/17 17:06 Imodium - PO 4 mg Q6H PRN Administration DIARRHEA Magnesium Hydroxide 30 ml 01/13/17 16:31 Milk Of Magnesia - PO DAILY PRN CONSTIPATION Miscellaneous 1 each 01/31/17 22:00 02/06/17 21:47 Lidoderm Patch Removal MC 1 each DAILY@2200 ELIAN Administration Paroxetine HCl 30 mg 01/19/17 10:00 02/07/17 10:53 Paxil - PO 30 mg DAILY ELIAN Administration Phenytoin Sodium 200 mg 01/23/17 22:00 02/07/17 10:53 Dilantin - PO 200 mg BID ELIAN Administration Multivit/Folic Acid/Iron 1 tab 01/14/17 10:00 02/07/17 10:54 Vitamins (Sjr) - PO 1 tab DAILY ELIAN Administration Pseudoephedrine/Triprolidine 1 combo 01/13/17 16:31 Actifed - PO TID PRN NASAL CONGESTION Thiamine HCl 100 mg 01/13/17 22:00 02/06/17 21:44 Vitamin B1 - PO 100 mg HS ELIAN Administration Tolnaftate 1 applic 01/17/17 22:00 02/07/17 10:55 Tinactin 1% Cream - TP Not Given BID ELIAN Current Side Effect: No Lab tests ordered: No Lab tests reviewed: Yes Provider note:: The patient reports feels dizzy , thinks related to Gabapentin he has been taking since admission, patient reports he feels weak after dizzy spel, will d/c Gabapentin, continue to monitor progress. Total face to face time:: 15 Mental Status Exam - Mental Status Exam Alert and Oriented to: Time, Place, Person Cognitive Function: Good Patient Appearance: Well Groomed Mood: Anxious Affect: Appropriate Patient Behavior: Appropriate, Cooperative Speech Pattern: Clear, Appropriate Voice Loudness: Normal Thought Process: Intact, Goal Oriented Thought Disorder: Not Present Hallucinations: Denies Suicidal Ideation: Denies Homicidal Ideation: Denies Insight/Judgement: Fair Sleep: Fair Appetite: Fair Muscle strength/Tone: Normal Gait/Station: Normal Psychiatric Treatment Plan - Problem List (1) Alcohol dependence Current Visit: Yes (2) Alcohol-induced anxiety disorder Current Visit: Yes (3) Depression Current Visit: Yes
[2017-02-07] MEDS: THIAMINE HCL 100 MG TABLET (FP) PO SCH (22:22)
[2017-02-07] MEDS: diphenhydrAMINE HCL 50 MG CAPSULE PO PRN (22:22)
[2017-02-07] MEDS: LIDOCAINE PATCH REMOVAL MC SCH (22:23)
[2017-02-08] MEDS: ACAMPROSATE CALCIUM 333 MG TABLET.DR PO SCH ×3 (06:26→22:04)
[2017-02-08] MEDS: IBUPROFEN 400 MG TABLET (FP) PO PRN (06:26)
[2017-02-08] MEDS: PHENYTOIN NA EXTENDED 100 MG CAPSULE (FP) PO SCH ×2 (10:29→22:04)
[2017-02-08] MEDS: PARoxetine HCL 10 MG TABLET (FP) PO SCH (10:29)
[2017-02-08] MEDS: PRENATAL VITAMINS W/ FOLIC ACID TABLET (FP) PO SCH (10:29)
[2017-02-08] MEDS: HYDROCORTISONE 1% TOPICAL CREAM 30 GM TUBE TP SCH ×2 (10:29→22:04)
[2017-02-08] MEDS: LIDOCAINE 5% TOPICAL PATCH TP SCH (10:30)
[2017-02-08] MEDS: TOLNAFTATE 1% CREAM 15 GM TUBE TP SCH ×2 (10:30→22:04)
[2017-02-08] MEDS: ACETAMINOPHEN 325 MG TABLET (FP) PO PRN ×2 (10:31→17:55)
[2017-02-08] MEDS: LOPERAMIDE HCL 2 MG CAPSULE PO PRN (13:43)
[2017-02-08] MEDS: THIAMINE HCL 100 MG TABLET (FP) PO SCH (22:04)
[2017-02-08] MEDS: LIDOCAINE PATCH REMOVAL MC SCH (22:06)
[2017-02-09] MEDS: ACAMPROSATE CALCIUM 333 MG TABLET.DR PO SCH ×3 (06:40→22:12)
[2017-02-09] MEDS: PRENATAL VITAMINS W/ FOLIC ACID TABLET (FP) PO SCH (10:25)
[2017-02-09] MEDS: HYDROCORTISONE 1% TOPICAL CREAM 30 GM TUBE TP SCH ×2 (10:25→22:14)
[2017-02-09] MEDS: PHENYTOIN NA EXTENDED 100 MG CAPSULE (FP) PO SCH ×2 (10:25→22:13)
[2017-02-09] MEDS: PARoxetine HCL 10 MG TABLET (FP) PO SCH (10:25)
[2017-02-09] MEDS: IBUPROFEN 400 MG TABLET (FP) PO PRN (10:26)
[2017-02-09] MEDS: LIDOCAINE 5% TOPICAL PATCH TP SCH (10:26)
[2017-02-09] MEDS: TOLNAFTATE 1% CREAM 15 GM TUBE TP SCH ×2 (10:26→22:14)
[2017-02-09] MEDS: diphenhydrAMINE HCL 50 MG CAPSULE PO PRN (22:13)
[2017-02-09] MEDS: THIAMINE HCL 100 MG TABLET (FP) PO SCH (22:13)
[2017-02-09] MEDS: LIDOCAINE PATCH REMOVAL MC SCH (22:14)
[2017-02-10] MEDS: ACAMPROSATE CALCIUM 333 MG TABLET.DR PO SCH ×3 (06:12→21:58)
[2017-02-10] MEDS: PHENYTOIN NA EXTENDED 100 MG CAPSULE (FP) PO SCH ×2 (10:16→21:58)
[2017-02-10] MEDS: IBUPROFEN 400 MG TABLET (FP) PO PRN (10:16)
[2017-02-10] MEDS: LIDOCAINE 5% TOPICAL PATCH TP SCH (10:17)
[2017-02-10] MEDS: PARoxetine HCL 10 MG TABLET (FP) PO SCH (10:17)
[2017-02-10] MEDS: PRENATAL VITAMINS W/ FOLIC ACID TABLET (FP) PO SCH (10:17)
[2017-02-10] MEDS: TOLNAFTATE 1% CREAM 15 GM TUBE TP SCH ×2 (10:18→22:19)
[2017-02-10] MEDS: HYDROCORTISONE 1% TOPICAL CREAM 30 GM TUBE TP SCH ×2 (10:18→21:57)
[2017-02-10] MEDS: ACETAMINOPHEN 325 MG TABLET (FP) PO PRN (12:41)
[2017-02-10] MEDS: LOPERAMIDE HCL 2 MG CAPSULE PO PRN (16:53)
[2017-02-10] MEDS: THIAMINE HCL 100 MG TABLET (FP) PO SCH (21:58)
[2017-02-10] MEDS: LIDOCAINE PATCH REMOVAL MC SCH (22:19)
[2017-02-11] MEDS: IBUPROFEN 400 MG TABLET (FP) PO PRN (05:57)
[2017-02-11] MEDS: ACAMPROSATE CALCIUM 333 MG TABLET.DR PO SCH (05:57)
[2017-02-11 06:51] VITALS: BP 118/78; PULSE 84; TEMP 98.4
[2017-02-11] MEDS: PRENATAL VITAMINS W/ FOLIC ACID TABLET (FP) PO SCH (09:52)
[2017-02-11] MEDS: PARoxetine HCL 10 MG TABLET (FP) PO SCH (09:52)
[2017-02-11] MEDS: PHENYTOIN NA EXTENDED 100 MG CAPSULE (FP) PO SCH (09:52)
[2017-02-11] MEDS: LIDOCAINE 5% TOPICAL PATCH TP SCH (09:53)
[2017-02-11] MEDS: HYDROCORTISONE 1% TOPICAL CREAM 30 GM TUBE TP SCH (09:53)
[2017-02-11] MEDS: TOLNAFTATE 1% CREAM 15 GM TUBE TP SCH (09:53)
--- NOTE | 2017-02-11 10:19 | PN ---
Psychiatric Progress Note Vital Signs: Vital Signs Period Temp Pulse Resp BP Sys/Still Pulse Ox Last 24 Hr 98.4 F 84 18-18 118/78 Date of Session: 02/11/17 Chief Complaint:: discharge visit HPI: Patient is addressing alcohol dependence comorbid alcohol induced anxiety disorder and depression ROS: Seizure disorder medically managed. Current Medications: Active Medications Generic Name Dose Route Start Last Admin Trade Name Freq PRN Reason Stop Dose Admin Acamprosate 666 mg 01/16/17 14:00 02/11/17 05:57 Campral - PO 666 mg TID ELIAN Administration Acetaminophen 650 mg 01/13/17 16:31 02/10/17 12:41 Tylenol - PO 650 mg Q4H PRN Administration FEVER OR PAIN Al Hydroxide/Mg Hydroxide 30 ml 01/13/17 16:31 02/04/17 14:07 Mylanta Oral Suspension - PO 30 ml Q6H PRN Administration DYSPEPSIA Diphenhydramine HCl 50 mg 01/13/17 16:31 02/09/17 22:13 Benadryl - PO 50 mg HSMR1 PRN Administration FOR ITCHING Eucalyptus/Menthol/Phenol/Sorbitol 1 each 01/13/17 16:31 Cepastat Lozenge - MM Q4H PRN SORE THROAT Guaifenesin 10 ml 01/13/17 16:31 Robitussin Dm - PO Q6H PRN COUGH Hydrocortisone 1 applic 01/18/17 22:00 02/11/17 09:53 Hytone 1% Cream - TP Not Given BID ELIAN Ibuprofen 800 mg 01/22/17 10:44 02/11/17 05:57 Motrin - PO 800 mg Q6H PRN Administration PAIN Lidocaine 1 patch 01/31/17 13:00 02/11/17 09:53 Lidoderm Patch - TP 1 patch DAILY ELIAN Administration Loperamide HCl 4 mg 01/13/17 16:31 02/10/17 16:53 Imodium - PO 4 mg Q6H PRN Administration DIARRHEA Magnesium Hydroxide 30 ml 01/13/17 16:31 Milk Of Magnesia - PO DAILY PRN CONSTIPATION Miscellaneous 1 each 01/31/17 22:00 02/10/17 22:19 Lidoderm Patch Removal MC Not Given DAILY@2200 [facility] Paroxetine HCl 30 mg 01/19/17 10:00 02/11/17 09:52 Paxil - PO 30 mg DAILY ELIAN Administration Phenytoin Sodium 200 mg 01/23/17 22:00 02/11/17 09:52 Dilantin - PO 200 mg BID ELIAN Administration Multivit/Folic Acid/Iron 1 tab 01/14/17 10:00 02/11/17 09:52 Vitamins (Sjr) - PO 1 tab DAILY ELIAN Administration Pseudoephedrine/Triprolidine 1 combo 01/13/17 16:31 02/08/17 17:54 Actifed - PO 1 combo TID PRN Administration NASAL CONGESTION Thiamine HCl 100 mg 01/13/17 22:00 02/10/17 21:58 Vitamin B1 - PO 100 mg HS ELIAN Administration Tolnaftate 1 applic 01/17/17 22:00 02/11/17 09:53 Tinactin 1% Cream - TP Not Given BID ELIAN Current Side Effect: No Lab tests ordered: No Lab tests reviewed: Yes Provider note:: Patient has completed today his treatment and met hisgoals, will continue to address his issues at [facility] treatment program. Patient gained insights into his addiction and motivated to continue maintain abstinence. Patient focused on importance of changing attitudes for the tlization of supports to prevent relapses. Telma reoirts that CAmpral and Paxil effective and he feels no urges to drink, sricpts provided, patient is stable for discharge today. Total face to face time:: 35 Mental Status Exam - Mental Status Exam Alert and Oriented to: Time, Place, Person Cognitive Function: Good Patient Appearance: Well Groomed Mood: Hopeful Affect: Appropriate, Mood Congruent Patient Behavior: Appropriate, Cooperative Speech Pattern: Clear, Appropriate Voice Loudness: Normal Thought Process: Intact, Goal Oriented Thought Disorder: Not Present Hallucinations: Denies Suicidal Ideation: Denies Homicidal Ideation: Denies Insight/Judgement: Fair Sleep: Fair Appetite: Fair Muscle strength/Tone: Normal Gait/Station: Normal
== END 2017-02-11 11:00 | disposition home or self-care (01) | DRG 772 ==
LOC: YASAS 11:34 → Y5N 11:35
PROVIDERS: ADMIT Psychiatry & Neurology Psychiatry; ATTEND Psychiatry & Neurology Psychiatry
PROC: HZ42ZZZ Group Counseling for Substance Abuse Treatment, Cognitive-Behavioral (ICD-10-PCS; principal; 2017-01-13)
DX: F10.20 Alcohol dependence, uncomplicated (principal); F10.24 Alcohol dependence with alcohol-induced mood disorder; F32.9 Major depressive disorder, single episode, unspecified; G40.909 Epilepsy, unspecified, not intractable, without status epilepticus; M54.5 Low back pain; R07.9 Chest pain, unspecified; W18.30XA Fall on same level, unspecified, initial encounter; Z91.81 History of falling; Y93.9 Activity, unspecified; Y92.238 Other place in hospital as the place of occurrence of the external cause; Z59.0 Homelessness
CPT/HCPCS: 36415; 80185

== ENCOUNTER 2017-01-15 17:57 | Emergency (ER) | payer OTHER ==
[2017-01-15 18:15] VITALS: BP 126/85; PULSE 72; TEMP 97.9; BMI 25.1
[2017-01-15 18:49] LABS: BASOPHIL 1.2 % (0-2.0); MCH 32.1 pg (25.7-33.7); MCHC 32.9 g/dl (32.0-35.9); MEAN CELL VOLUME 97.5 fl (80-96); MEAN PLT VOLUME 8.2 fl (7.5-11.1); NEUTROPHILS 56.1 % (42.8-82.8); PLATELET COUNT 235 K/MM3 (134-434); RDW 13.6 % (11.9-15.9); WHITE BLOOD COUNT 5.7 K/mm3 (4.0-10.0)
[2017-01-15 19:09] LABS: INR 1.08 (0.82-1.09); PROTHROMBIN TIME (PATIENT) 11.9 SEC (9.98-11.88)
[2017-01-15 19:24] LABS: URINE APPEARANCE CLEAR; URINE BILIRUBIN NEGATIVE (NEGATIVE); URINE BLOOD NEGATIVE (NEGATIVE); URINE COLOR STRAW; URINE GLUCOSE (UA) NEGATIVE (NEGATIVE); URINE KETONE NEGATIVE (NEGATIVE); URINE LEUK ESTERASE NEGATIVE (NEGATIVE); URINE NITRITE NEGATIVE (NEGATIVE); URINE PROTEIN NEGATIVE (NEGATIVE); URINE UROBILINOGEN NEGATIVE E.U./dl (0.2-1.0)
[2017-01-15 20:54] LABS: ALBUMIN 3.6 g/dl (3.4-5.0); ANION GAP 8 (8-16); CALCIUM 9.1 mg/dL (8.5-10.1); CO2 30 mmol/L (21-32); COCKROFT - GAULT 122.65; CREATININE 0.8 mg/dL (0.7-1.3); GLUCOSE,RANDOM 108 mg/dL (74-106); SGOT/AST 22 U/L (15-37); SGPT/ALT 34 U/L (12-78)
[2017-01-15 20:58] LABS: ALK PHOS 24 U/L (45-117); BILIRUBIN,TOTAL 0.3 mg/dL (0.2-1.0); TOT PROT 7.2 g/dl (6.4-8.2); TROPONIN I < 0.02 ng/ml (0.00-0.05)
--- NOTE | 2017-01-15 22:02 | PDOC ---
History of Present Illness - General Chief Complaint: Syncope/Near Syncope Stated Complaint: FALL Time Seen by Provider: 01/15/17 19:32 History Source: Patient, EMS Exam Limitations: No Limitations - History of Present Illness Initial Comments: 01/15/17 21:58 51yo Male patient w/ PmHx: Seizures presented to ED from [facility] via EMS. Patient has been at [facility] for past 4 days for alcohol detox. While preparing a sandwich patient felt dizzy, fell and hit his head. Staff report no seizure activity. Last EtOH intake: 5 days ago. Patient denies any other complaints at this time. Occurred: reports: just prior to arrival Severity: reports: mild Pain Location: reports: head Method of Injury: Yes: fall Modifying Factors: worse with: None, cold therapy, immobilization, pain medication, rest, other Loss of Consciousness: no loss of consciousness Associated Symptoms (Fall): denies symptoms Past History - Travel Traveled outside of the country in the last 30 days: No Close contact w/someone who was outside of country & ill: No - Past Medical History Allergies/Adverse Reactions: Allergies Allergy/AdvReac Type Severity Reaction Status Date / Time No Known Allergies Allergy Verified 01/08/17 21:53 Home Medications: Ambulatory Orders Phenytoin Na Extended [Dilantin -] 100 mg PO DAILY 01/08/17 Paroxetine HCl [Paxil -] 30 mg PO DAILY #30 tablet 01/09/17 Anemia: No Asthma: No Cancer: No Cardiac Disorders: No CVA: No COPD: No CHF: No Dementia: No Diabetes: No GI Disorders: No Disorders: No HTN: No Hypercholesterolemia: No Kidney Stones: No Liver Disease: No Suicide Attempt (Hx): No Seizures: Yes Thyroid Disease: No - Surgical History Abdominal Surgery: Yes (Hernia repair 2012) Appendectomy: No Cardiac Surgery: No Cholecystectomy: No Lung Surgery: No Neurologic Surgery: No Orthopedic Surgery: Yes (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) - Reproductive History Testicular Surgery: No - Psycho/Social/Smoking Cessation Hx Anxiety: Yes Suicidal Ideation: No Smoking History: Former smoker Have you smoked in the past 12 months: No Information on smoking cessation initiated: No 'Breaking Loose' booklet given: 01/08/17 Hx Alcohol Use: Yes Drug/Substance Use Hx: No Substance Use Type: Alcohol Hx Substance Use Treatment: No Trauma Specific PMHX - Complaint Specific PMHX Arthritis: No Back Injury: No Neck Injury: No Hx Sacro Iliac Joint Dysfunction: No Review of Systems - Review of Systems Able to Perform ROS?: Yes Is the patient limited Guyanese proficient: No Constitutional: No: Chills, Fever, Weakness Respiratory: No: Shortness of Breath, Stridor, Wheezing Cardiac (ROS): No: Chest Pain, Edema, Syncope, Chest Tightness ABD/GI: No: Constipated, Diarrhea, Nausea, Poor Appetite, Poor Fluid Intake, Vomiting : No: Burning, Dysuria, Hematuria, Pain Musculoskeletal: Yes: Other (Head Injury). No: Back Pain, Neck Pain Integumentary: No: Bruising, Dryness, Erythema Neurological: No: Headache, Seizure, Tremors, Weakness All Other Systems: Reviewed and Negative *Physical Exam - Vital Signs Last Vital Signs Temp Pulse Resp BP Pulse Ox 97.9 F 72 20 126/85 96 01/15/17 18:13 01/15/17 18:13 01/15/17 18:13 01/15/17 18:13 01/15/17 18:13 - Physical Exam General Appearance: Yes: Nourished, Appropriately Dressed. No: Apparent Distress, Mild Distress, Moderate Distress, Severe Distress HEENT: positive: EOMI, ERI, Normal ENT Inspection, Normal Voice, Symmetrical, TMs Normal, Pharynx Normal. negative: Pharyngeal Erythema, Tonsillar Exudate, Tonsillar Erythema, Nasal Congestion, Rhinorrhea, TM Bulging, TM Dull, TM Erythema Neck: positive: Trachea midline, Supple. negative: Decreased range of motion, Stridor, Lymphadenopathy (R), Lymphadenopathy (L), Tender lateral, Tender midline Respiratory/Chest: positive: Lungs Clear, Normal Breath Sounds. negative: Chest Tender, Respiratory Distress, Accessory Muscle Use, Labored Respiration, Rapid RR, Crackles, Stridor, Wheezing Cardiovascular: positive: Regular Rhythm, Regular Rate. negative: Edema, JVD, Murmur Gastrointestinal/Abdominal: positive: Normal Bowel Sounds, Soft. negative: Distended, Guarding, Rebound, Tenderness Musculoskeletal: positive: Normal Inspection. negative: CVA Tenderness Extremity: positive: Normal Capillary Refill, Normal Inspection, Normal Range of Motion. negative: Pedal Edema, Swelling, Calf Tenderness, Erythema, Inflammation Integumentary: positive: Normal Color, Dry, Warm Neurologic: positive: general administrator II-XII NML intact, Fully Oriented, Alert, Normal Mood/ Affect, Normal Response, Motor Strength 12/21 ED Treatment Course - LABORATORY CBC & Chemistry Diagram: 01/15/17 18:32 01/15/17 20:01 - ADDITIONAL ORDERS Additional order review: Laboratory Results 01/15/17 01/15/17 01/15/17 20:01 18:42 18:34 INR 1.08 Sodium 140 Potassium 4.3 Chloride 102 Carbon Dioxide 30 Anion Gap 8 BUN 14 D Creatinine 0.8 D Creat Clearance w eGFR > 60 Random Glucose 108 H Calcium 9.1 Total Bilirubin 0.3 D AST 22 ALT 34 D Alkaline Phosphatase 24 L Creatine Kinase 76 Troponin I < 0.02 Total Protein 7.2 Albumin 3.6 Urine Color Straw Urine Appearance Clear Urine pH 6.0 Ur Specific [place] 1.010 Urine Protein Negative Urine Glucose (UA) Negative Urine Ketones Negative Urine Blood Negative Urine Nitrite Negative Urine Bilirubin Negative Urine Urobilinogen Negative Ur Leukocyte Esterase Negative 01/15/17 18:32 INR Sodium Cancelled Potassium Cancelled Chloride Cancelled Carbon Dioxide Cancelled Anion Gap Cancelled BUN Cancelled Creatinine Cancelled Creat Clearance w eGFR Cancelled Random Glucose Cancelled Calcium Cancelled Total Bilirubin Cancelled AST Cancelled ALT Cancelled Alkaline Phosphatase Cancelled Creatine Kinase Cancelled Troponin I Cancelled Total Protein Cancelled Albumin Cancelled Urine Color Urine Appearance Urine pH Ur Specific [place] Urine Protein Urine Glucose (UA) Urine Ketones Urine Blood Urine Nitrite Urine Bilirubin Urine Urobilinogen Ur Leukocyte Esterase 01/15/17 18:32 RBC 4.29 MCV 97.5 H MCHC 32.9 RDW 13.6 MPV 8.2 Neutrophils % 56.1 Lymphocytes % 26.6 Monocytes % 13.1 H Eosinophils % 3.0 Basophils % 1.2 - RADIOLOGY Radiology Studies Ordered: Category Date Time Status HEAD CT WITHOUT CONTRAST [CT] Stat CT Scan 01/15/17 20:50 Completed *DC/Admit/Observation/Transfer Diagnosis at time of Disposition: Head injury Qualifiers: Encounter type: initial encounter Qualified Code(s): S09.90XA - Unspecified injury of head, initial encounter Fall Qualifiers: Encounter type: initial encounter Qualified Code(s): W19.XXXA - Unspecified fall, initial encounter - Discharge Dispostion Disposition: TRANSFER ACUTE CARE/OTHER HOSP Condition at time of disposition: Stable Admit: No - Patient Instructions Printed Discharge Instructions: DI for Closed Head Injury Additional Instructions: Return if symptoms worsen or any concerns for further evaluation. Print Language: MACEDONIAN
[2017-01-15] MEDS ORDERED: chlordiazePOXIDE HCL 25 MG CAPSULE PO ONE (22:05)
--- NOTE | 2017-01-15 22:10 | PDOC ---
*Physical Exam - Vital Signs Last Vital Signs Temp Pulse Resp BP Pulse Ox 97.9 F 72 20 126/85 96 01/15/17 18:13 01/15/17 18:13 01/15/17 18:13 01/15/17 18:13 01/15/17 18:13 ED Treatment Course - LABORATORY CBC & Chemistry Diagram: 01/15/17 18:32 01/15/17 20:01 - ADDITIONAL ORDERS Additional order review: Laboratory Results 01/15/17 01/15/17 01/15/17 20:01 18:42 18:34 INR 1.08 Sodium 140 Potassium 4.3 Chloride 102 Carbon Dioxide 30 Anion Gap 8 BUN 14 D Creatinine 0.8 D Creat Clearance w eGFR > 60 Random Glucose 108 H Calcium 9.1 Total Bilirubin 0.3 D AST 22 ALT 34 D Alkaline Phosphatase 24 L Creatine Kinase 76 Troponin I < 0.02 Total Protein 7.2 Albumin 3.6 Urine Color Straw Urine Appearance Clear Urine pH 6.0 Ur Specific [place] 1.010 Urine Protein Negative Urine Glucose (UA) Negative Urine Ketones Negative Urine Blood Negative Urine Nitrite Negative Urine Bilirubin Negative Urine Urobilinogen Negative Ur Leukocyte Esterase Negative 01/15/17 18:32 INR Sodium Cancelled Potassium Cancelled Chloride Cancelled Carbon Dioxide Cancelled Anion Gap Cancelled BUN Cancelled Creatinine Cancelled Creat Clearance w eGFR Cancelled Random Glucose Cancelled Calcium Cancelled Total Bilirubin Cancelled AST Cancelled ALT Cancelled Alkaline Phosphatase Cancelled Creatine Kinase Cancelled Troponin I Cancelled Total Protein Cancelled Albumin Cancelled Urine Color Urine Appearance Urine pH Ur Specific [place] Urine Protein Urine Glucose (UA) Urine Ketones Urine Blood Urine Nitrite Urine Bilirubin Urine Urobilinogen Ur Leukocyte Esterase 01/15/17 18:32 RBC 4.29 MCV 97.5 H MCHC 32.9 RDW 13.6 MPV 8.2 Neutrophils % 56.1 Lymphocytes % 26.6 Monocytes % 13.1 H Eosinophils % 3.0 Basophils % 1.2 Medical Decision Making - Medical Decision Making 01/15/17 22:09 agree with care from ABELARDO Sanders *DC/Admit/Observation/Transfer Diagnosis at time of Disposition: Head injury Qualifiers: Encounter type: initial encounter Qualified Code(s): S09.90XA - Unspecified injury of head, initial encounter Fall Qualifiers: Encounter type: initial encounter Qualified Code(s): W19.XXXA - Unspecified fall, initial encounter - Referrals - Patient Instructions Printed Discharge Instructions: DI for Closed Head Injury Additional Instructions: Return if symptoms worsen or any concerns for further evaluation. Print Language: BRITISH [place] ISLANDER - Post Discharge Activity
[2017-01-15] MEDS ORDERED: chlordiazePOXIDE HCL 25 MG CAPSULE ONE (22:14)
--- NOTE | 2017-01-17 16:36 | EKG ---
Test Reason : Blood Pressure : / mmHG Vent. Rate : 069 BPM Atrial Rate : 069 BPM P-R Int : 212 ms QRS Dur : 106 ms QT Int : 400 ms P-R-T Axes : 045 010 019 degrees QTc Int : 428 ms SINUS RHYTHM WITH 1ST DEGREE A-V BLOCK POSSIBLE ANTERIOR INFARCT , AGE UNDETERMINED ABNORMAL ECG WHEN COMPARED WITH ECG OF 08-JAN-2017 21:41, NO SIGNIFICANT CHANGE WAS FOUND Confirmed by ALICE RÍOS, DEE ([id number]) on 01/17/2017 4:35:40 PM Referred By: Confirmed By:DEE JENKINS MD
== END 2017-01-16 00:21 | disposition other institution (70) ==
LOC: JER 17:57
DX: S09.8XXA Other specified injuries of head, initial encounter (principal); W01.190A Fall on same level from slipping, tripping and stumbling with subsequent striking against furniture, initial encounter; Y93.G1 Activity, food preparation and clean up; Y92.238 Other place in hospital as the place of occurrence of the external cause; F10.20 Alcohol dependence, uncomplicated; Z86.69 Personal history of other diseases of the nervous system and sense organs; Z87.891 Personal history of nicotine dependence; Z59.0 Homelessness
CPT/HCPCS: 36415; 70450-TC; 71020-TC; 80053; 81003; 82550; 84484; 85025; 85610; 93005; 93010; 99283-25